=== PATIENT | male | born 1995 | race Caucasian/White ===

== ENCOUNTER 2021-09-15 21:47 | Outpatient (REF) | payer OTHER, SELFPAY ==
[2021-09-15 22:08] LABS: Basophils Absolute Auto 0.03 K/uL (0.00-0.30); Basophils Percent Auto 0.6 % (0.0-3.0); Eosinophils Absolute Auto 0.02 K/uL (0.00-0.50); Eosinophils Percent Auto 0.4 % (0.0-7.0); Hematocrit 43.2 % (37.0-53.0); Hemoglobin* 14.7 gm/dL (13.5-17.5); Immature Granulocytes Abs Auto 0.01 K/uL (0.00-0.30); Lymphocytes Absolute Auto 1.76 K/uL (0.90-2.90); Lymphocytes Percent Auto 37.9 % (20-44); Mean Corpuscular HGB Conc 34 gm/dL (32-36); Mean Corpuscular Hemoglobin 30 pg (26-34); Mean Corpuscular Volume 87 fL (80-100); Monocytes Percent Auto 13.4 % (0.0-11.0); Neutrophils Percent Auto 47.5 % (42.0-72.0); Platelet Count* 198 K/uL (140-440); Red Blood Count 4.95 m/uL (4.30-5.90); White Blood Count* 4.64 K/uL (4.50-11.00)
[2021-09-15 22:11] LABS: Slide Review Reflex No
== END 2021-09-15 21:48 | disposition home or self-care (01) ==
LOC: LAB 21:47
PROVIDERS: Visit Provider Psychiatry & Neurology Psychiatry
DX: F25.0 Schizoaffective disorder, bipolar type (principal)
CPT/HCPCS: 36415; 85025

== ENCOUNTER 2021-11-13 22:13 | Outpatient (RCR) | payer OTHER, SELFPAY ==
[2021-10-13 23:30] LABS: Basophils Absolute Auto 0.02 K/uL (0.00-0.30); Basophils Percent Auto 0.4 % (0.0-3.0); Eosinophils Absolute Auto 0.01 K/uL (0.00-0.50); Eosinophils Percent Auto 0.2 % (0.0-7.0); Hematocrit 40.8 % (37.0-53.0); Immature Granulocytes Abs Auto 0.01 K/uL (0.00-0.30); Lymphocytes Absolute Auto 1.93 K/uL (0.90-2.90); Lymphocytes Percent Auto 41.6 % (20-44); Mean Corpuscular HGB Conc 34 gm/dL (32-36); Mean Corpuscular Hemoglobin 30 pg (26-34); Mean Corpuscular Volume 87 fL (80-100); Monocytes Percent Auto 15.3 % (0.0-11.0); Neutrophils Absolute Auto 1.96 K/uL (1.7-7.0); Neutrophils Percent Auto 42.3 % (42.0-72.0); Platelet Count* 211 K/uL (140-440); RDW Coefficient of Variation % 12.1 % (11.5-15.5); Red Blood Count 4.69 m/uL (4.30-5.90); White Blood Count* 4.64 K/uL (4.50-11.00)
[2021-10-13 23:37] LABS: Slide Review Reflex No
[2021-11-13 22:56] LABS: Basophils Absolute Auto 0.02 K/uL (0.00-0.30); Basophils Percent Auto 0.2 % (0.0-3.0); Eosinophils Absolute Auto 0.01 K/uL (0.00-0.50); Eosinophils Percent Auto 0.1 % (0.0-7.0); Hematocrit 41.9 % (37.0-53.0); Hemoglobin* 14.5 gm/dL (13.5-17.5); Immature Granulocytes Abs Auto 0.01 K/uL (0.00-0.30); Lymphocytes Absolute Auto 1.68 K/uL (0.90-2.90); Mean Corpuscular HGB Conc 35 gm/dL (32-36); Mean Corpuscular Hemoglobin 30 pg (26-34); Mean Corpuscular Volume 88 fL (80-100); Monocytes Percent Auto 11.9 % (0.0-11.0); Neutrophils Absolute Auto 5.67 K/uL (1.7-7.0); Neutrophils Percent Auto 67.7 % (42.0-72.0); Platelet Count* 184 K/uL (140-440); RDW Coefficient of Variation % 11.8 % (11.5-15.5); Red Blood Count 4.77 m/uL (4.30-5.90); White Blood Count* 8.39 K/uL (4.50-11.00)
[2021-11-13 23:01] LABS: Slide Review Reflex No
[2022-04-23 21:49] LABS: Basophils Percent Auto 0.7 % (0.0-3.0); Hematocrit 39.1 % (37.0-53.0); Hemoglobin* 13.3 gm/dL (13.5-17.5); Immature Granulocytes Pct Auto 0.2 %; Lymphocytes Percent Auto 38.2 % (20-44); Mean Corpuscular HGB Conc 34 gm/dL (32-36); Mean Corpuscular Hemoglobin 31 pg (26-34); Mean Corpuscular Volume 90 fL (80-100); Monocytes Percent Auto 12.2 % (0.0-11.0); Neutrophils Percent Auto 48.7 % (42.0-72.0); Platelet Count* 202 K/uL (140-440); RDW Coefficient of Variation % 12.1 % (11.5-15.5); Red Blood Count 4.35 m/uL (4.30-5.90); White Blood Count* 4.03 K/uL (4.50-11.00)
[2022-04-23 21:57] LABS: Slide Review Reflex No
== END 2022-10-21 11:50 | disposition home or self-care (01) ==
LOC: LAB 22:13
PROVIDERS: Visit Provider Psychiatry & Neurology Psychiatry
DX: F25.0 Schizoaffective disorder, bipolar type (principal); Z79.899 Other long term (current) drug therapy
CPT/HCPCS: 36415; 85025

== ENCOUNTER 2021-12-08 21:45 | Outpatient (REF) | payer OTHER, SELFPAY ==
[2021-12-08 22:59] LABS: Basophils Absolute Auto 0.05 K/uL (0.00-0.30); Basophils Percent Auto 0.7 % (0.0-3.0); Eosinophils Absolute Auto 0.01 K/uL (0.00-0.50); Eosinophils Percent Auto 0.1 % (0.0-7.0); Hematocrit 43.7 % (37.0-53.0); Hemoglobin* 15.2 gm/dL (13.5-17.5); Immature Granulocytes Abs Auto 0.02 K/uL (0.00-0.30); Lymphocytes Absolute Auto 2.04 K/uL (0.90-2.90); Lymphocytes Percent Auto 26.9 % (20-44); Mean Corpuscular HGB Conc 35 gm/dL (32-36); Mean Corpuscular Hemoglobin 31 pg (26-34); Mean Corpuscular Volume 88 fL (80-100); Monocytes Percent Auto 13.9 % (0.0-11.0); Neutrophils Absolute Auto 4.41 K/uL (1.7-7.0); Neutrophils Percent Auto 58.1 % (42.0-72.0); Platelet Count* 211 K/uL (140-440); Red Blood Count 4.96 m/uL (4.30-5.90); White Blood Count* 7.58 K/uL (4.50-11.00)
[2021-12-08 23:00] LABS: Slide Review Reflex No
== END 2021-12-08 21:46 | disposition home or self-care (01) ==
LOC: LAB 21:45
PROVIDERS: Visit Provider Psychiatry & Neurology Psychiatry
DX: F25.0 Schizoaffective disorder, bipolar type (principal)
CPT/HCPCS: 36415; 85025

== ENCOUNTER 2022-01-04 23:12 | Outpatient (RCR) | payer OTHER, SELFPAY ==
[2022-01-05 02:37] LABS: Hematocrit 43.5 % (37.0-53.0); Hemoglobin* 14.6 gm/dL (13.5-17.5); Mean Corpuscular HGB Conc 34 gm/dL (32-36); Mean Corpuscular Hemoglobin 30 pg (26-34); Mean Corpuscular Volume 90 fL (80-100); Red Blood Count 4.84 m/uL (4.30-5.90); White Blood Count* 8.64 K/uL (4.50-11.00)
[2022-01-05 02:38] LABS: Basophils Percent Auto 0.5 % (0.0-3.0); Eosinophils Percent Auto 0.1 % (0.0-7.0); Immature Granulocytes Pct Auto 0.2 %; Lymphocytes Percent Auto 24.9 % (20-44); Monocytes Percent Auto 9.1 % (0.0-11.0); Neutrophils Percent Auto 65.2 % (42.0-72.0); Platelet Count* 208 K/uL (140-440); Slide Review Reflex No
[2022-03-26 15:48] LABS: Basophils Percent Auto 0.2 % (0.0-3.0); Hematocrit 44.2 % (37.0-53.0); Hemoglobin* 14.9 gm/dL (13.5-17.5); Immature Granulocytes Pct Auto 0.2 %; Lymphocytes Percent Auto 33.3 % (20-44); Mean Corpuscular HGB Conc 34 gm/dL (32-36); Mean Corpuscular Hemoglobin 31 pg (26-34); Mean Corpuscular Volume 91 fL (80-100); Monocytes Percent Auto 12.5 % (0.0-11.0); Neutrophils Percent Auto 53.8 % (42.0-72.0); Platelet Count* 184 K/uL (140-440); RDW Coefficient of Variation % 12.1 % (11.5-15.5); Red Blood Count 4.87 m/uL (4.30-5.90); White Blood Count* 4.09 K/uL (4.50-11.00)
[2022-03-26 15:49] LABS: Slide Review Reflex No
[2022-05-20 21:47] LABS: Basophils Absolute Auto 0.02 K/uL (0.00-0.30); Basophils Percent Auto 0.3 % (0.0-3.0); Eosinophils Absolute Auto 0.01 K/uL (0.00-0.50); Eosinophils Percent Auto 0.2 % (0.0-7.0); Hematocrit 43.1 % (37.0-53.0); Hemoglobin* 14.7 gm/dL (13.5-17.5); Immature Granulocytes Abs Auto 0.02 K/uL (0.00-0.30); Immature Granulocytes Pct Auto 0.3 %; Lymphocytes Absolute Auto 2.44 K/uL (0.90-2.90); Lymphocytes Percent Auto 37.2 % (20-44); Mean Corpuscular HGB Conc 34 gm/dL (32-36); Mean Corpuscular Hemoglobin 30 pg (26-34); Mean Corpuscular Volume 89 fL (80-100); Monocytes Percent Auto 12.5 % (0.0-11.0); Neutrophils Absolute Auto 3.25 K/uL (1.7-7.0); Neutrophils Percent Auto 49.5 % (42.0-72.0); Platelet Count* 222 K/uL (140-440); RDW Coefficient of Variation % 11.7 % (11.5-15.5); Red Blood Count 4.84 m/uL (4.30-5.90); White Blood Count* 6.56 K/uL (4.50-11.00)
[2022-05-20 21:48] LABS: Slide Review Reflex No
== END 2022-01-04 23:13 | disposition home or self-care (01) ==
LOC: LAB 23:12
PROVIDERS: Visit Provider Psychiatry & Neurology Psychiatry
DX: F25.0 Schizoaffective disorder, bipolar type (principal)
CPT/HCPCS: 36415; 85025

== ENCOUNTER 2022-02-02 21:43 | Outpatient (REF) | payer OTHER, SELFPAY ==
[2022-02-02 23:04] LABS: Basophils Absolute Auto 0.02 K/uL (0.00-0.30); Basophils Percent Auto 0.4 % (0.0-3.0); Hematocrit 41.2 % (37.0-53.0); Hemoglobin* 14.1 gm/dL (13.5-17.5); Immature Granulocytes Abs Auto 0.01 K/uL (0.00-0.30); Immature Granulocytes Pct Auto 0.2 %; Lymphocytes Absolute Auto 1.57 K/uL (0.90-2.90); Lymphocytes Percent Auto 30.3 % (20-44); Mean Corpuscular HGB Conc 34 gm/dL (32-36); Mean Corpuscular Hemoglobin 30 pg (26-34); Mean Corpuscular Volume 89 fL (80-100); Monocytes Percent Auto 14.7 % (0.0-11.0); Neutrophils Absolute Auto 2.82 K/uL (1.7-7.0); Neutrophils Percent Auto 54.4 % (42.0-72.0); Platelet Count* 219 K/uL (140-440); RDW Coefficient of Variation % 12.2 % (11.5-15.5); Red Blood Count 4.64 m/uL (4.30-5.90); White Blood Count* 5.18 K/uL (4.50-11.00)
[2022-02-02 23:07] LABS: Slide Review Reflex No
== END 2022-02-02 21:44 | disposition home or self-care (01) ==
LOC: LAB 21:43
PROVIDERS: Visit Provider Psychiatry & Neurology Psychiatry
DX: U07.1 COVID-19 (principal); J02.9 Acute pharyngitis, unspecified; E10.9 Type 1 diabetes mellitus without complications; E03.9 Hypothyroidism, unspecified
CPT/HCPCS: 36415; 85025

== ENCOUNTER 2022-03-02 21:27 | Outpatient (REF) | payer OTHER, SELFPAY ==
[2022-03-02 21:44] LABS: Basophils Absolute Auto 0.02 K/uL (0.00-0.30); Basophils Percent Auto 0.4 % (0.0-3.0); Hematocrit 38.7 % (37.0-53.0); Hemoglobin* 13.3 gm/dL (13.5-17.5); Immature Granulocytes Abs Auto 0.01 K/uL (0.00-0.30); Immature Granulocytes Pct Auto 0.2 %; Lymphocytes Absolute Auto 1.96 K/uL (0.90-2.90); Lymphocytes Percent Auto 34.4 % (20-44); Mean Corpuscular HGB Conc 34 gm/dL (32-36); Mean Corpuscular Hemoglobin 30 pg (26-34); Mean Corpuscular Volume 88 fL (80-100); Monocytes Percent Auto 12.1 % (0.0-11.0); Neutrophils Absolute Auto 3.01 K/uL (1.7-7.0); Neutrophils Percent Auto 52.9 % (42.0-72.0); Platelet Count* 207 K/uL (140-440); Red Blood Count 4.38 m/uL (4.30-5.90); White Blood Count* 5.69 K/uL (4.50-11.00)
[2022-03-02 21:45] LABS: Slide Review Reflex No
== END 2022-03-02 21:28 | disposition home or self-care (01) ==
LOC: NPINS 21:27
PROVIDERS: Visit Provider Psychiatry & Neurology Psychiatry
DX: F25.0 Schizoaffective disorder, bipolar type (principal)
CPT/HCPCS: 85025

== ENCOUNTER 2022-03-26 13:16 | Outpatient (CLI) | payer OTHER, SELFPAY | END 2022-03-26 13:17 | disposition home or self-care (01) | PROVIDERS: Visit Provider Psychiatry & Neurology Psychiatry | DX: F25.0 Schizoaffective disorder, bipolar type (principal) | CPT/HCPCS: 36415; 85025 ==

== ENCOUNTER 2022-09-25 01:42 | Outpatient (CLI) | payer OTHER, SELFPAY | END 2022-09-25 01:43 | disposition home or self-care (01) | LOC: AMB 09-28 14:48 | PROVIDERS: Visit Provider Internal Medicine | DX: T42.4X2A Poisoning by benzodiazepines, intentional self-harm, initial encounter (principal); T42.6X2A Poisoning by other antiepileptic and sedative-hypnotic drugs, intentional self-harm, initial encounter; T38.1X2A Poisoning by thyroid hormones and substitutes, intentional self-harm, initial encounter; Y92.009 Unspecified place in unspecified non-institutional (private) residence as the place of occurrence of the external cause | CPT/HCPCS: A0425; A0427 ==

== ENCOUNTER 2022-10-19 13:46 | Outpatient (CLI) | payer OTHER, SELFPAY | END 2022-10-19 13:47 | disposition home or self-care (01) | PROVIDERS: PCP Family Medicine; Visit Provider Family Medicine | DX: E10.9 Type 1 diabetes mellitus without complications (principal); E03.9 Hypothyroidism, unspecified; F25.9 Schizoaffective disorder, unspecified; T50.901A Poisoning by unspecified drugs, medicaments and biological substances, accidental (unintentional), initial encounter | CPT/HCPCS: 80048; 80164; 80165; 84443 ==

== ENCOUNTER 2022-11-04 16:55 | Outpatient (RCR) | payer OTHER, SELFPAY ==
[2022-11-04 18:15] LABS: Basophils Absolute Auto 0.02 K/uL (0.00-0.30); Basophils Percent Auto 0.3 % (0.0-3.0); Hematocrit 40.5 % (37.0-53.0); Hemoglobin* 13.7 gm/dL (13.5-17.5); Lymphocytes Absolute Auto 2.17 K/uL (0.90-2.90); Lymphocytes Percent Auto 28.8 % (20-44); Mean Corpuscular HGB Conc 34 gm/dL (32-36); Mean Corpuscular Hemoglobin 30 pg (26-34); Mean Corpuscular Volume 89 fL (80-100); Monocytes Percent Auto 12.2 % (0.0-11.0); Neutrophils Absolute Auto 4.43 K/uL (1.7-7.0); Neutrophils Percent Auto 58.7 % (42.0-72.0); Platelet Count* 188 K/uL (140-440); RDW Coefficient of Variation % 12.1 % (11.5-15.5); Red Blood Count 4.57 m/uL (4.30-5.90); White Blood Count* 7.54 K/uL (4.50-11.00)
[2022-11-04 18:40] LABS: Slide Review Reflex No
[2022-12-30 22:58] LABS: Basophils Absolute Auto 0.02 K/uL (0.00-0.30); Basophils Percent Auto 0.3 % (0.0-3.0); Eosinophils Absolute Auto 0.01 K/uL (0.00-0.50); Eosinophils Percent Auto 0.1 % (0.0-7.0); Hematocrit 40.3 % (37.0-53.0); Hemoglobin* 13.7 gm/dL (13.5-17.5); Immature Granulocytes Abs Auto 0.04 K/uL (0.00-0.30); Immature Granulocytes Pct Auto 0.5 %; Lymphocytes Percent Auto 33.3 % (20-44); Mean Corpuscular HGB Conc 34 gm/dL (32-36); Mean Corpuscular Hemoglobin 30 pg (26-34); Mean Corpuscular Volume 89 fL (80-100); Monocytes Percent Auto 12.1 % (0.0-11.0); Neutrophils Absolute Auto 4.02 K/uL (1.7-7.0); Neutrophils Percent Auto 53.7 % (42.0-72.0); Platelet Count* 242 K/uL (140-440); RDW Coefficient of Variation % 12.3 % (11.5-15.5); Red Blood Count 4.54 m/uL (4.30-5.90)
[2022-12-30 23:02] LABS: Slide Review Reflex No
[2023-02-24 22:12] LABS: Basophils Absolute Auto 0.04 K/uL (0.00-0.30); Basophils Percent Auto 0.6 % (0.0-3.0); Eosinophils Absolute Auto 0.01 K/uL (0.00-0.50); Eosinophils Percent Auto 0.2 % (0.0-7.0); Hemoglobin* 14.4 gm/dL (13.5-17.5); Immature Granulocytes Abs Auto 0.08 K/uL (0.00-0.30); Immature Granulocytes Pct Auto 1.2 %; Lymphocytes Percent Auto 33.5 % (20-44); Mean Corpuscular HGB Conc 34 gm/dL (32-36); Mean Corpuscular Hemoglobin 30 pg (26-34); Mean Corpuscular Volume 89 fL (80-100); Neutrophils Absolute Auto 3.18 K/uL (1.7-7.0); Neutrophils Percent Auto 48.5 % (42.0-72.0); Platelet Count* 293 K/uL (140-440); RDW Coefficient of Variation % 12.3 % (11.5-15.5); Red Blood Count 4.81 m/uL (4.30-5.90); White Blood Count* 6.56 K/uL (4.50-11.00)
[2023-02-24 22:14] LABS: Slide Review Reflex No
[2023-03-31 21:38] LABS: Basophils Absolute Auto 0.02 K/uL (0.00-0.30); Basophils Percent Auto 0.2 % (0.0-3.0); Hematocrit 41.1 % (37.0-53.0); Hemoglobin* 13.6 gm/dL (13.5-17.5); Immature Granulocytes Abs Auto 0.08 K/uL (0.00-0.30); Immature Granulocytes Pct Auto 0.8 %; Lymphocytes Absolute Auto 2.49 K/uL (0.90-2.90); Lymphocytes Percent Auto 25.6 % (20-44); Mean Corpuscular HGB Conc 33 gm/dL (32-36); Mean Corpuscular Hemoglobin 29 pg (26-34); Mean Corpuscular Volume 89 fL (80-100); Monocytes Percent Auto 14.4 % (0.0-11.0); Neutrophils Absolute Auto 5.75 K/uL (1.7-7.0); Platelet Count* 297 K/uL (140-440); RDW Coefficient of Variation % 12.8 % (11.5-15.5); Red Blood Count 4.63 m/uL (4.30-5.90); White Blood Count* 9.74 K/uL (4.50-11.00)
[2023-03-31 21:47] LABS: Slide Review Reflex No
[2023-04-20 21:40] LABS: Basophils Absolute Auto 0.02 K/uL (0.00-0.30); Basophils Percent Auto 0.4 % (0.0-3.0); Hematocrit 40.2 % (37.0-53.0); Hemoglobin* 13.4 gm/dL (13.5-17.5); Immature Granulocytes Abs Auto 0.01 K/uL (0.00-0.30); Immature Granulocytes Pct Auto 0.2 %; Lymphocytes Absolute Auto 1.46 K/uL (0.90-2.90); Mean Corpuscular HGB Conc 33 gm/dL (32-36); Mean Corpuscular Hemoglobin 30 pg (26-34); Mean Corpuscular Volume 89 fL (80-100); Monocytes Percent Auto 15.7 % (0.0-11.0); Neutrophils Absolute Auto 2.48 K/uL (1.7-7.0); Neutrophils Percent Auto 52.7 % (42.0-72.0); Platelet Count* 198 K/uL (140-440); RDW Coefficient of Variation % 13.4 % (11.5-15.5); Red Blood Count 4.54 m/uL (4.30-5.90); White Blood Count* 4.71 K/uL (4.50-11.00)
[2023-04-20 21:43] LABS: Slide Review Reflex No
== END 2023-10-25 08:57 | disposition home or self-care (01) ==
LOC: NPINS 16:55
PROVIDERS: PCP Family Medicine; Visit Provider Psychiatry & Neurology Psychiatry
DX: F25.8 Other schizoaffective disorders (principal); Z79.899 Other long term (current) drug therapy
CPT/HCPCS: 36415; 85025

== ENCOUNTER 2022-12-02 21:46 | Outpatient (REF) | payer OTHER, MEDICARE, SELFPAY ==
[2022-12-02 22:34] LABS: Basophils Absolute Auto 0.03 K/uL (0.00-0.30); Basophils Percent Auto 0.5 % (0.0-3.0); Hemoglobin* 14.9 gm/dL (13.5-17.5); Immature Granulocytes Abs Auto 0.01 K/uL (0.00-0.30); Immature Granulocytes Pct Auto 0.2 %; Lymphocytes Percent Auto 32.9 % (20-44); Mean Corpuscular HGB Conc 34 gm/dL (32-36); Mean Corpuscular Hemoglobin 30 pg (26-34); Mean Corpuscular Volume 90 fL (80-100); Monocytes Percent Auto 15.3 % (0.0-11.0); Neutrophils Absolute Auto 2.95 K/uL (1.7-7.0); Neutrophils Percent Auto 51.1 % (42.0-72.0); Platelet Count* 191 K/uL (140-440); RDW Coefficient of Variation % 12.1 % (11.5-15.5); Red Blood Count 4.91 m/uL (4.30-5.90); White Blood Count* 5.77 K/uL (4.50-11.00)
[2022-12-02 22:39] LABS: Slide Review Reflex No
== END 2022-12-02 21:47 | disposition home or self-care (01) ==
LOC: NPINS 21:46
PROVIDERS: PCP Family Medicine; Visit Provider Psychiatry & Neurology Psychiatry
DX: E03.9 Hypothyroidism, unspecified (principal); E10.9 Type 1 diabetes mellitus without complications; F25.9 Schizoaffective disorder, unspecified
CPT/HCPCS: 85025

== ENCOUNTER 2023-01-27 22:06 | Outpatient (REF) | payer OTHER, MEDICARE, SELFPAY ==
[2023-01-27 23:48] LABS: Basophils Absolute Auto 0.02 K/uL (0.00-0.30); Basophils Percent Auto 0.2 % (0.0-3.0); Hematocrit 41.2 % (37.0-53.0); Hemoglobin* 13.9 gm/dL (13.5-17.5); Immature Granulocytes Abs Auto 0.05 K/uL (0.00-0.30); Immature Granulocytes Pct Auto 0.6 %; Lymphocytes Percent Auto 23.4 % (20-44); Mean Corpuscular HGB Conc 34 gm/dL (32-36); Mean Corpuscular Hemoglobin 30 pg (26-34); Mean Corpuscular Volume 90 fL (80-100); Monocytes Percent Auto 12.4 % (0.0-11.0); Neutrophils Absolute Auto 5.14 K/uL (1.7-7.0); Neutrophils Percent Auto 63.4 % (42.0-72.0); Platelet Count* 214 K/uL (140-440); RDW Coefficient of Variation % 12.8 % (11.5-15.5); Red Blood Count 4.59 m/uL (4.30-5.90); White Blood Count* 8.12 K/uL (4.50-11.00)
[2023-01-27 23:52] LABS: Slide Review Reflex No
== END 2023-01-27 22:07 | disposition home or self-care (01) ==
LOC: NPINS 22:06
PROVIDERS: PCP Family Medicine; Visit Provider Psychiatry & Neurology Psychiatry
DX: Z13.0 Encounter for screening for diseases of the blood and blood-forming organs and certain disorders involving the immune mechanism (principal)
CPT/HCPCS: 85025

== ENCOUNTER 2023-08-16 21:57 | Outpatient (RCR) | payer MEDICARE, OTHER, SELFPAY ==
[2022-06-18 21:37] LABS: Basophils Absolute Auto 0.03 K/uL (0.00-0.30); Basophils Percent Auto 0.5 % (0.0-3.0); Hematocrit 42.9 % (37.0-53.0); Hemoglobin* 14.8 gm/dL (13.5-17.5); Immature Granulocytes Abs Auto 0.01 K/uL (0.00-0.30); Immature Granulocytes Pct Auto 0.2 %; Lymphocytes Percent Auto 29.5 % (20-44); Mean Corpuscular HGB Conc 35 gm/dL (32-36); Mean Corpuscular Hemoglobin 31 pg (26-34); Mean Corpuscular Volume 89 fL (80-100); Monocytes Percent Auto 15.7 % (0.0-11.0); Neutrophils Absolute Auto 3.49 K/uL (1.7-7.0); Neutrophils Percent Auto 54.1 % (42.0-72.0); Platelet Count* 201 K/uL (140-440); RDW Coefficient of Variation % 11.9 % (11.5-15.5); Red Blood Count 4.85 m/uL (4.30-5.90); White Blood Count* 6.44 K/uL (4.50-11.00)
[2022-06-18 22:03] LABS: Slide Review Reflex No
[2022-07-16 21:14] LABS: Basophils Absolute Auto 0.03 K/uL (0.00-0.30); Basophils Percent Auto 0.5 % (0.0-3.0); Hematocrit 40.2 % (37.0-53.0); Hemoglobin* 13.9 gm/dL (13.5-17.5); Immature Granulocytes Abs Auto 0.02 K/uL (0.00-0.30); Immature Granulocytes Pct Auto 0.3 %; Lymphocytes Absolute Auto 2.04 K/uL (0.90-2.90); Lymphocytes Percent Auto 31.4 % (20-44); Mean Corpuscular HGB Conc 35 gm/dL (32-36); Mean Corpuscular Hemoglobin 30 pg (26-34); Mean Corpuscular Volume 88 fL (80-100); Monocytes Percent Auto 13.2 % (0.0-11.0); Neutrophils Absolute Auto 3.55 K/uL (1.7-7.0); Neutrophils Percent Auto 54.6 % (42.0-72.0); Platelet Count* 224 K/uL (140-440); RDW Coefficient of Variation % 12.1 % (11.5-15.5); Red Blood Count 4.59 m/uL (4.30-5.90)
[2022-07-16 21:27] LABS: Slide Review Reflex No
[2022-08-12 22:10] LABS: Basophils Absolute Auto 0.03 K/uL (0.00-0.30); Basophils Percent Auto 0.3 % (0.0-3.0); Eosinophils Absolute Auto 0.01 K/uL (0.00-0.50); Eosinophils Percent Auto 0.1 % (0.0-7.0); Hematocrit 40.1 % (37.0-53.0); Hemoglobin* 13.8 gm/dL (13.5-17.5); Immature Granulocytes Abs Auto 0.03 K/uL (0.00-0.30); Immature Granulocytes Pct Auto 0.3 %; Lymphocytes Percent Auto 16.1 % (20-44); Mean Corpuscular HGB Conc 34 gm/dL (32-36); Mean Corpuscular Hemoglobin 30 pg (26-34); Mean Corpuscular Volume 88 fL (80-100); Monocytes Percent Auto 13.9 % (0.0-11.0); Neutrophils Absolute Auto 7.51 K/uL (1.7-7.0); Neutrophils Percent Auto 69.3 % (42.0-72.0); Platelet Count* 208 K/uL (140-440); RDW Coefficient of Variation % 12.3 % (11.5-15.5); Red Blood Count 4.58 m/uL (4.30-5.90); White Blood Count* 10.84 K/uL (4.50-11.00)
[2022-08-12 22:13] LABS: Slide Review Reflex No
[2022-09-09 22:29] LABS: Basophils Absolute Auto 0.03 K/uL (0.00-0.30); Basophils Percent Auto 0.4 % (0.0-3.0); Eosinophils Absolute Auto 0.01 K/uL (0.00-0.50); Eosinophils Percent Auto 0.1 % (0.0-7.0); Hematocrit 41.5 % (37.0-53.0); Immature Granulocytes Abs Auto 0.05 K/uL (0.00-0.30); Immature Granulocytes Pct Auto 0.6 %; Lymphocytes Absolute Auto 1.92 K/uL (0.90-2.90); Lymphocytes Percent Auto 22.9 % (20-44); Mean Corpuscular HGB Conc 34 gm/dL (32-36); Mean Corpuscular Hemoglobin 30 pg (26-34); Mean Corpuscular Volume 89 fL (80-100); Monocytes Percent Auto 12.2 % (0.0-11.0); Neutrophils Absolute Auto 5.34 K/uL (1.7-7.0); Neutrophils Percent Auto 63.8 % (42.0-72.0); Platelet Count* 210 K/uL (140-440); RDW Coefficient of Variation % 12.4 % (11.5-15.5); Red Blood Count 4.65 m/uL (4.30-5.90); White Blood Count* 8.37 K/uL (4.50-11.00)
[2022-09-09 22:36] LABS: Slide Review Reflex No
[2022-10-07 21:50] LABS: Basophils Absolute Auto 0.03 K/uL (0.00-0.30); Basophils Percent Auto 0.4 % (0.0-3.0); Eosinophils Absolute Auto 0.02 K/uL (0.00-0.50); Eosinophils Percent Auto 0.3 % (0.0-7.0); Hematocrit 39.1 % (37.0-53.0); Hemoglobin* 13.3 gm/dL (13.5-17.5); Immature Granulocytes Abs Auto 0.01 K/uL (0.00-0.30); Immature Granulocytes Pct Auto 0.1 %; Lymphocytes Absolute Auto 1.68 K/uL (0.90-2.90); Lymphocytes Percent Auto 23.2 % (20-44); Mean Corpuscular HGB Conc 34 gm/dL (32-36); Mean Corpuscular Hemoglobin 31 pg (26-34); Mean Corpuscular Volume 90 fL (80-100); Monocytes Percent Auto 12.3 % (0.0-11.0); Neutrophils Absolute Auto 4.62 K/uL (1.7-7.0); Neutrophils Percent Auto 63.7 % (42.0-72.0); Platelet Count* 208 K/uL (140-440); RDW Coefficient of Variation % 12.4 % (11.5-15.5); Red Blood Count 4.36 m/uL (4.30-5.90); White Blood Count* 7.25 K/uL (4.50-11.00)
[2022-10-07 21:54] LABS: Slide Review Reflex No
[2023-05-18 21:48] LABS: Basophils Absolute Auto 0.02 K/uL (0.00-0.30); Basophils Percent Auto 0.3 % (0.0-3.0); Eosinophils Absolute Auto 0.01 K/uL (0.00-0.50); Eosinophils Percent Auto 0.1 % (0.0-7.0); Hematocrit 42.2 % (37.0-53.0); Hemoglobin* 14.3 gm/dL (13.5-17.5); Immature Granulocytes Abs Auto 0.01 K/uL (0.00-0.30); Immature Granulocytes Pct Auto 0.1 %; Lymphocytes Absolute Auto 2.13 K/uL (0.90-2.90); Lymphocytes Percent Auto 27.9 % (20-44); Mean Corpuscular HGB Conc 34 gm/dL (32-36); Mean Corpuscular Hemoglobin 30 pg (26-34); Mean Corpuscular Volume 89 fL (80-100); Neutrophils Absolute Auto 4.55 K/uL (1.7-7.0); Neutrophils Percent Auto 59.6 % (42.0-72.0); Platelet Count* 230 K/uL (140-440); RDW Coefficient of Variation % 13.2 % (11.5-15.5); Red Blood Count 4.76 m/uL (4.30-5.90); White Blood Count* 7.64 K/uL (4.50-11.00)
[2023-05-18 21:50] LABS: Slide Review Reflex No
[2023-06-21 22:23] LABS: Basophils Percent Auto 0.5 % (0.0-3.0); Hematocrit 42.9 % (37.0-53.0); Hemoglobin* 14.7 gm/dL (13.5-17.5); Immature Granulocytes Pct Auto 0.3 %; Lymphocytes Percent Auto 43.5 % (20-44); Mean Corpuscular HGB Conc 34 gm/dL (32-36); Mean Corpuscular Hemoglobin 30 pg (26-34); Mean Corpuscular Volume 88 fL (80-100); Monocytes Percent Auto 14.2 % (0.0-11.0); Neutrophils Percent Auto 41.5 % (42.0-72.0); Platelet Count* 203 K/uL (140-440); RDW Coefficient of Variation % 12.2 % (11.5-15.5); Red Blood Count 4.89 m/uL (4.30-5.90); White Blood Count* 3.93 K/uL (4.50-11.00)
[2023-06-21 22:25] LABS: Slide Review Reflex No
[2023-07-19 22:17] LABS: Basophils Absolute Auto 0.02 K/uL (0.00-0.30); Basophils Percent Auto 0.3 % (0.0-3.0); Hematocrit 42.3 % (37.0-53.0); Hemoglobin* 14.5 gm/dL (13.5-17.5); Immature Granulocytes Abs Auto 0.01 K/uL (0.00-0.30); Immature Granulocytes Pct Auto 0.2 %; Lymphocytes Absolute Auto 1.54 K/uL (0.90-2.90); Mean Corpuscular HGB Conc 34 gm/dL (32-36); Mean Corpuscular Hemoglobin 30 pg (26-34); Mean Corpuscular Volume 87 fL (80-100); Monocytes Percent Auto 7.5 % (0.0-11.0); Neutrophils Absolute Auto 4.36 K/uL (1.7-7.0); Platelet Count* 220 K/uL (140-440); RDW Coefficient of Variation % 11.9 % (11.5-15.5); Red Blood Count 4.84 m/uL (4.30-5.90); White Blood Count* 6.41 K/uL (4.50-11.00)
[2023-07-19 22:35] LABS: Slide Review Reflex No
[2023-08-16 22:51] LABS: Basophils Absolute Auto 0.05 K/uL (0.00-0.30); Basophils Percent Auto 0.8 % (0.0-3.0); Eosinophils Absolute Auto 0.01 K/uL (0.00-0.50); Eosinophils Percent Auto 0.2 % (0.0-7.0); Hematocrit 39.5 % (37.0-53.0); Hemoglobin* 13.7 gm/dL (13.5-17.5); Immature Granulocytes Abs Auto 0.05 K/uL (0.00-0.30); Immature Granulocytes Pct Auto 0.8 %; Lymphocytes Absolute Auto 2.04 K/uL (0.90-2.90); Lymphocytes Percent Auto 31.5 % (20-44); Mean Corpuscular HGB Conc 35 gm/dL (32-36); Mean Corpuscular Hemoglobin 30 pg (26-34); Mean Corpuscular Volume 87 fL (80-100); Monocytes Percent Auto 11.1 % (0.0-11.0); Neutrophils Percent Auto 55.6 % (42.0-72.0); Platelet Count* 208 K/uL (140-440); RDW Coefficient of Variation % 12.3 % (11.5-15.5); Red Blood Count 4.53 m/uL (4.30-5.90); White Blood Count* 6.47 K/uL (4.50-11.00)
[2023-08-16 22:52] LABS: Slide Review Reflex No
[2023-09-06 22:05] LABS: Basophils Absolute Auto 0.01 K/uL (0.00-0.30); Basophils Percent Auto 0.1 % (0.0-3.0); Hemoglobin* 13.4 gm/dL (13.5-17.5); Immature Granulocytes Abs Auto 0.02 K/uL (0.00-0.30); Immature Granulocytes Pct Auto 0.3 %; Lymphocytes Percent Auto 15.3 % (20-44); Mean Corpuscular HGB Conc 34 gm/dL (32-36); Mean Corpuscular Hemoglobin 30 pg (26-34); Mean Corpuscular Volume 87 fL (80-100); Monocytes Percent Auto 16.4 % (0.0-11.0); Neutrophils Absolute Auto 4.81 K/uL (1.7-7.0); Neutrophils Percent Auto 67.9 % (42.0-72.0); Platelet Count* 205 K/uL (140-440); RDW Coefficient of Variation % 12.1 % (11.5-15.5); Red Blood Count 4.47 m/uL (4.30-5.90); White Blood Count* 7.08 K/uL (4.50-11.00)
[2023-09-06 23:07] LABS: Slide Review Reflex No
[2023-10-12 21:44] LABS: Basophils Absolute Auto 0.03 K/uL (0.00-0.30); Basophils Percent Auto 0.5 % (0.0-3.0); Eosinophils Absolute Auto 0.01 K/uL (0.00-0.50); Eosinophils Percent Auto 0.2 % (0.0-7.0); Hematocrit 37.1 % (37.0-53.0); Hemoglobin* 12.6 gm/dL (13.5-17.5); Immature Granulocytes Abs Auto 0.05 K/uL (0.00-0.30); Immature Granulocytes Pct Auto 0.8 %; Lymphocytes Absolute Auto 2.11 K/uL (0.90-2.90); Lymphocytes Percent Auto 32.6 % (20-44); Mean Corpuscular HGB Conc 34 gm/dL (32-36); Mean Corpuscular Hemoglobin 30 pg (26-34); Mean Corpuscular Volume 88 fL (80-100); Monocytes Percent Auto 13.1 % (0.0-11.0); Neutrophils Absolute Auto 3.43 K/uL (1.7-7.0); Neutrophils Percent Auto 52.8 % (42.0-72.0); Platelet Count* 358 K/uL (140-440); RDW Coefficient of Variation % 11.8 % (11.5-15.5); Red Blood Count 4.23 m/uL (4.30-5.90); White Blood Count* 6.48 K/uL (4.50-11.00)
[2023-10-12 21:45] LABS: Slide Review Reflex No
== END 2024-07-22 10:55 | disposition home or self-care (01) ==
LOC: LAB 21:57
PROVIDERS: Visit Provider Psychiatry & Neurology Psychiatry
DX: F25.0 Schizoaffective disorder, bipolar type (principal); Z79.899 Other long term (current) drug therapy; Z51.81 Encounter for therapeutic drug level monitoring
CPT/HCPCS: 36415; 85025

== ENCOUNTER 2024-01-02 22:05 | Outpatient (RCR) | payer OTHER, SELFPAY ==
[2023-11-07 23:13] LABS: Basophils Absolute Auto 0.02 K/uL (0.00-0.30); Basophils Percent Auto 0.2 % (0.0-3.0); Hematocrit 39.8 % (37.0-53.0); Hemoglobin* 13.2 gm/dL (13.5-17.5); Immature Granulocytes Abs Auto 0.07 K/uL (0.00-0.30); Immature Granulocytes Pct Auto 0.8 %; Lymphocytes Percent Auto 19.8 % (20-44); Mean Corpuscular HGB Conc 33 gm/dL (32-36); Mean Corpuscular Hemoglobin 29 pg (26-34); Mean Corpuscular Volume 88 fL (80-100); Monocytes Percent Auto 12.6 % (0.0-11.0); Neutrophils Absolute Auto 5.48 K/uL (1.7-7.0); Neutrophils Percent Auto 66.6 % (42.0-72.0); Platelet Count* 267 K/uL (140-440); RDW Coefficient of Variation % 12.5 % (11.5-15.5); Red Blood Count 4.54 m/uL (4.30-5.90); White Blood Count* 8.24 K/uL (4.50-11.00)
[2023-11-07 23:19] LABS: Slide Review Reflex No
[2023-12-06 20:39] LABS: Basophils Absolute Auto 0.03 K/uL (0.00-0.30); Basophils Percent Auto 0.3 % (0.0-3.0); Hematocrit 39.6 % (37.0-53.0); Hemoglobin* 13.1 gm/dL (13.5-17.5); Immature Granulocytes Abs Auto 0.03 K/uL (0.00-0.30); Immature Granulocytes Pct Auto 0.3 %; Lymphocytes Percent Auto 18.8 % (20-44); Mean Corpuscular HGB Conc 33 gm/dL (32-36); Mean Corpuscular Hemoglobin 28 pg (26-34); Mean Corpuscular Volume 86 fL (80-100); Monocytes Percent Auto 18.2 % (0.0-11.0); Neutrophils Absolute Auto 6.53 K/uL (1.7-7.0); Neutrophils Percent Auto 62.4 % (42.0-72.0); Platelet Count* 328 K/uL (140-440); RDW Coefficient of Variation % 12.7 % (11.5-15.5); Red Blood Count 4.63 m/uL (4.30-5.90); White Blood Count* 10.45 K/uL (4.50-11.00)
[2023-12-06 20:42] LABS: Slide Review Reflex No
[2024-01-02 22:49] LABS: Basophils Absolute Auto 0.03 K/uL (0.00-0.30); Basophils Percent Auto 0.3 % (0.0-3.0); Eosinophils Absolute Auto 0.01 K/uL (0.00-0.50); Eosinophils Percent Auto 0.1 % (0.0-7.0); Hematocrit 38.1 % (37.0-53.0); Hemoglobin* 12.7 gm/dL (13.5-17.5); Immature Granulocytes Abs Auto 0.09 K/uL (0.00-0.30); Immature Granulocytes Pct Auto 0.8 %; Lymphocytes Percent Auto 10.5 % (20-44); Mean Corpuscular HGB Conc 33 gm/dL (32-36); Mean Corpuscular Hemoglobin 28 pg (26-34); Mean Corpuscular Volume 84 fL (80-100); Monocytes Percent Auto 16.6 % (0.0-11.0); Neutrophils Absolute Auto 7.67 K/uL (1.7-7.0); Neutrophils Percent Auto 71.7 % (42.0-72.0); Platelet Count* 328 K/uL (140-440); RDW Coefficient of Variation % 13.3 % (11.5-15.5); Red Blood Count 4.56 m/uL (4.30-5.90)
[2024-01-02 23:27] LABS: Slide Review Reflex No
[2024-02-01 21:48] LABS: Basophils Absolute Auto 0.06 K/uL (0.00-0.30); Basophils Percent Auto 0.9 % (0.0-3.0); Eosinophils Absolute Auto 0.01 K/uL (0.00-0.50); Eosinophils Percent Auto 0.1 % (0.0-7.0); Hematocrit 40.4 % (37.0-53.0); Hemoglobin* 13.2 gm/dL (13.5-17.5); Immature Granulocytes Abs Auto 0.01 K/uL (0.00-0.30); Immature Granulocytes Pct Auto 0.1 %; Lymphocytes Absolute Auto 1.37 K/uL (0.90-2.90); Lymphocytes Percent Auto 20.3 % (20-44); Mean Corpuscular HGB Conc 33 gm/dL (32-36); Mean Corpuscular Hemoglobin 28 pg (26-34); Mean Corpuscular Volume 85 fL (80-100); Monocytes Percent Auto 12.6 % (0.0-11.0); Neutrophils Absolute Auto 4.44 K/uL (1.7-7.0); Platelet Count* 210 K/uL (140-440); RDW Coefficient of Variation % 14.2 % (11.5-15.5); Red Blood Count 4.73 m/uL (4.30-5.90); White Blood Count* 6.74 K/uL (4.50-11.00)
[2024-02-01 21:56] LABS: Slide Review Reflex No
== END 2024-07-22 10:55 | disposition home or self-care (01) ==
LOC: LAB 22:05
PROVIDERS: Visit Provider Psychiatry & Neurology Psychiatry
DX: Z51.81 Encounter for therapeutic drug level monitoring (principal)
CPT/HCPCS: 36415; 85025

== ENCOUNTER 2024-02-27 19:35 | Outpatient (REF) | payer OTHER, SELFPAY ==
[2024-02-27 19:52] LABS: Basophils Absolute Auto 0.03 K/uL (0.00-0.30); Basophils Percent Auto 0.5 % (0.0-3.0); Eosinophils Absolute Auto 0.02 K/uL (0.00-0.50); Eosinophils Percent Auto 0.3 % (0.0-7.0); Hematocrit 43.5 % (37.0-53.0); Hemoglobin* 14.5 gm/dL (13.5-17.5); Immature Granulocytes Abs Auto 0.03 K/uL (0.00-0.30); Immature Granulocytes Pct Auto 0.5 %; Lymphocytes Absolute Auto 2.53 K/uL (0.90-2.90); Lymphocytes Percent Auto 38.9 % (20-44); Mean Corpuscular HGB Conc 33 gm/dL (32-36); Mean Corpuscular Hemoglobin 28 pg (26-34); Mean Corpuscular Volume 85 fL (80-100); Monocytes Percent Auto 13.2 % (0.0-11.0); Neutrophils Absolute Auto 3.04 K/uL (1.7-7.0); Neutrophils Percent Auto 46.6 % (42.0-72.0); Platelet Count* 240 K/uL (140-440); RDW Coefficient of Variation % 14.2 % (11.5-15.5); White Blood Count* 6.51 K/uL (4.50-11.00)
[2024-02-27 19:56] LABS: Slide Review Reflex No
== END 2024-02-27 19:36 | disposition home or self-care (01) ==
LOC: NPINS 19:35
PROVIDERS: Visit Provider Psychiatry & Neurology Psychiatry
DX: Z51.81 Encounter for therapeutic drug level monitoring (principal)
CPT/HCPCS: 85025

== ENCOUNTER 2024-03-28 12:21 | Outpatient (CLI) | payer OTHER, SELFPAY ==
[2024-03-28 21:40] LABS: Basophils Absolute Auto 0.03 K/uL (0.00-0.30); Basophils Percent Auto 0.5 % (0.0-3.0); Eosinophils Absolute Auto 0.02 K/uL (0.00-0.50); Eosinophils Percent Auto 0.3 % (0.0-7.0); Hematocrit 41.8 % (37.0-53.0); Hemoglobin* 14.1 gm/dL (13.5-17.5); Immature Granulocytes Abs Auto 0.01 K/uL (0.00-0.30); Immature Granulocytes Pct Auto 0.2 %; Lymphocytes Absolute Auto 2.01 K/uL (0.90-2.90); Lymphocytes Percent Auto 34.7 % (20-44); Mean Corpuscular HGB Conc 34 gm/dL (32-36); Mean Corpuscular Hemoglobin 29 pg (26-34); Mean Corpuscular Volume 87 fL (80-100); Neutrophils Absolute Auto 2.86 K/uL (1.7-7.0); Neutrophils Percent Auto 49.3 % (42.0-72.0); Platelet Count* 211 K/uL (140-440); RDW Coefficient of Variation % 13.6 % (11.5-15.5); Red Blood Count 4.82 m/uL (4.30-5.90)
[2024-03-28 21:45] LABS: Slide Review Reflex No
== END 2024-03-28 12:22 | disposition home or self-care (01) ==
LOC: NPINS 12:23
PROVIDERS: Visit Provider Psychiatry & Neurology Psychiatry
DX: Z51.81 Encounter for therapeutic drug level monitoring (principal)
CPT/HCPCS: 85025

== ENCOUNTER 2024-04-23 13:04 | Outpatient (CLI) | payer OTHER, SELFPAY ==
[2024-04-23 23:12] LABS: Basophils Absolute Auto 0.03 K/uL (0.00-0.30); Basophils Percent Auto 0.6 % (0.0-3.0); Eosinophils Absolute Auto 0.01 K/uL (0.00-0.50); Eosinophils Percent Auto 0.2 % (0.0-7.0); Hematocrit 42.1 % (37.0-53.0); Hemoglobin* 14.3 gm/dL (13.5-17.5); Immature Granulocytes Abs Auto 0.04 K/uL (0.00-0.30); Immature Granulocytes Pct Auto 0.7 %; Lymphocytes Absolute Auto 1.99 K/uL (0.90-2.90); Lymphocytes Percent Auto 37.1 % (20-44); Mean Corpuscular HGB Conc 34 gm/dL (32-36); Mean Corpuscular Hemoglobin 29 pg (26-34); Mean Corpuscular Volume 87 fL (80-100); Neutrophils Absolute Auto 2.55 K/uL (1.7-7.0); Neutrophils Percent Auto 47.4 % (42.0-72.0); Platelet Count* 275 K/uL (140-440); RDW Coefficient of Variation % 12.8 % (11.5-15.5); Red Blood Count 4.86 m/uL (4.30-5.90); White Blood Count* 5.37 K/uL (4.50-11.00)
[2024-04-23 23:29] LABS: Slide Review Reflex No
== END 2024-04-23 13:05 | disposition home or self-care (01) ==
LOC: NPINS 13:04
PROVIDERS: Visit Provider Psychiatry & Neurology Psychiatry
DX: Z51.81 Encounter for therapeutic drug level monitoring (principal)
CPT/HCPCS: 85025

== ENCOUNTER 2024-05-22 14:42 | Outpatient (CLI) | payer OTHER, SELFPAY ==
[2024-05-22 23:15] LABS: Basophils Absolute Auto 0.04 K/uL (0.00-0.30); Basophils Percent Auto 0.7 % (0.0-3.0); Hematocrit 42.5 % (37.0-53.0); Hemoglobin* 14.5 gm/dL (13.5-17.5); Immature Granulocytes Abs Auto 0.01 K/uL (0.00-0.30); Immature Granulocytes Pct Auto 0.2 %; Lymphocytes Absolute Auto 2.54 K/uL (0.90-2.90); Lymphocytes Percent Auto 41.6 % (20-44); Mean Corpuscular HGB Conc 34 gm/dL (32-36); Mean Corpuscular Hemoglobin 30 pg (26-34); Mean Corpuscular Volume 87 fL (80-100); Monocytes Percent Auto 14.6 % (0.0-11.0); Neutrophils Absolute Auto 2.63 K/uL (1.7-7.0); Neutrophils Percent Auto 42.9 % (42.0-72.0); Platelet Count* 285 K/uL (140-440); RDW Coefficient of Variation % 12.1 % (11.5-15.5); Red Blood Count 4.86 m/uL (4.30-5.90); White Blood Count* 6.11 K/uL (4.50-11.00)
[2024-05-22 23:33] LABS: Slide Review Reflex No
== END 2024-05-22 14:43 | disposition home or self-care (01) ==
LOC: NPINS 14:43
PROVIDERS: Visit Provider Psychiatry & Neurology Psychiatry
DX: Z51.81 Encounter for therapeutic drug level monitoring (principal)
CPT/HCPCS: 85025

== ENCOUNTER 2024-06-18 14:56 | Outpatient (CLI) | payer SELFPAY ==
[2024-06-18 22:03] LABS: Basophils Absolute Auto 0.02 K/uL (0.00-0.30); Basophils Percent Auto 0.4 % (0.0-3.0); Hematocrit 42.1 % (37.0-53.0); Hemoglobin* 14.4 gm/dL (13.5-17.5); Immature Granulocytes Abs Auto 0.02 K/uL (0.00-0.30); Immature Granulocytes Pct Auto 0.4 %; Lymphocytes Absolute Auto 2.05 K/uL (0.90-2.90); Lymphocytes Percent Auto 38.8 % (20-44); Mean Corpuscular HGB Conc 34 gm/dL (32-36); Mean Corpuscular Hemoglobin 30 pg (26-34); Mean Corpuscular Volume 88 fL (80-100); Monocytes Percent Auto 16.1 % (0.0-11.0); Neutrophils Absolute Auto 2.34 K/uL (1.7-7.0); Neutrophils Percent Auto 44.3 % (42.0-72.0); Platelet Count* 267 K/uL (140-440); Red Blood Count 4.78 m/uL (4.30-5.90); White Blood Count* 5.28 K/uL (4.50-11.00)
[2024-06-18 22:04] LABS: Slide Review Reflex No
== END 2024-06-18 14:57 | disposition home or self-care (01) ==
PROVIDERS: Referring Provider Psychiatry & Neurology Psychiatry; Visit Provider Psychiatry & Neurology Psychiatry
DX: Z51.81 Encounter for therapeutic drug level monitoring (principal)
CPT/HCPCS: 85025

== ENCOUNTER 2024-07-17 13:48 | Outpatient (CLI) | payer OTHER, SELFPAY ==
[2024-07-17 21:42] LABS: Basophils Absolute Auto 0.04 K/uL (0.00-0.30); Basophils Percent Auto 0.8 % (0.0-3.0); Hemoglobin* 14.6 gm/dL (13.5-17.5); Immature Granulocytes Abs Auto 0.01 K/uL (0.00-0.30); Immature Granulocytes Pct Auto 0.2 %; Lymphocytes Absolute Auto 1.99 K/uL (0.90-2.90); Lymphocytes Percent Auto 39.8 % (20-44); Mean Corpuscular HGB Conc 34 gm/dL (32-36); Mean Corpuscular Hemoglobin 30 pg (26-34); Mean Corpuscular Volume 87 fL (80-100); Monocytes Percent Auto 12.6 % (0.0-11.0); Neutrophils Absolute Auto 2.33 K/uL (1.7-7.0); Neutrophils Percent Auto 46.6 % (42.0-72.0); Platelet Count* 254 K/uL (140-440); RDW Coefficient of Variation % 11.6 % (11.5-15.5); Red Blood Count 4.94 m/uL (4.30-5.90)
[2024-07-17 21:44] LABS: Slide Review Reflex No
== END 2024-07-17 13:49 | disposition home or self-care (01) ==
LOC: NPINS 13:49
PROVIDERS: Visit Provider Psychiatry & Neurology Psychiatry
DX: Z51.81 Encounter for therapeutic drug level monitoring (principal); F25.0 Schizoaffective disorder, bipolar type; Z79.899 Other long term (current) drug therapy
CPT/HCPCS: 85025

== ENCOUNTER 2024-08-14 14:54 | Outpatient (CLI) | payer OTHER, SELFPAY ==
[2024-08-14 21:53] LABS: Basophils Absolute Auto 0.02 K/uL (0.00-0.30); Basophils Percent Auto 0.4 % (0.0-3.0); Hematocrit 41.8 % (37.0-53.0); Hemoglobin* 14.3 gm/dL (13.5-17.5); Immature Granulocytes Abs Auto 0.01 K/uL (0.00-0.30); Immature Granulocytes Pct Auto 0.2 %; Lymphocytes Percent Auto 44.8 % (20-44); Mean Corpuscular HGB Conc 34 gm/dL (32-36); Mean Corpuscular Hemoglobin 30 pg (26-34); Mean Corpuscular Volume 88 fL (80-100); Monocytes Percent Auto 12.6 % (0.0-11.0); Neutrophils Absolute Auto 1.97 K/uL (1.7-7.0); Platelet Count* 220 K/uL (140-440); Red Blood Count 4.76 m/uL (4.30-5.90); White Blood Count* 4.69 K/uL (4.50-11.00)
[2024-08-14 21:55] LABS: Slide Review Reflex No
--- OUTSIDE RECORDS SUMMARY | 2024-08-15 00:53 | XMS_ITS | Clinical Summary ---
Author Organization [employer] Address [address] [place] [address] Care Team Providers Care Vocational Training Instructor Name Role Phone Maco Rodriges MD Primary Care Provider [phone] Source Comments You are receiving this document as you are listed as the primary care provider,follow-up provider, or the patient has been referred to you for consultation.This is in compliance with the Medicare and[facility] EHR Incentive Program,which states Providers who transition their patient to another setting of careor provider of care or refers their patient to another provider of care shouldprovide summary care record for each transition of care or referral. [employer] Allergies Active Allergy Reactions Criticality Noted Date Comments Zinc Acetate Rash 10/02/2020 Zinc Oxide Medications divalproex (DEPAKOTE ER) 500 MG 24 hour release tablet Take 3 Tablets (1,500 mg) by mouth daily at bedtime. 1 Active cloZAPine (CLOZARIL) 100 MG tablet 1 Active insulin lispro (HUMALOG; ADMELOG) 100 UNIT/ML injection vialIndications:C ontrolled type 1 diabetes mellitus without complication (HRC) Inject 100 units daily via insulin pump 90 mL 3 5 Active levothyroxine (SYNTHROID) 75 MCG tablet Take 1 Tablet (75 mcg) by mouth daily. 90 Tablet 3 5 Active blood glucose (ACCU-CHEK GUIDE) test stripIndications: Controlled type 1 diabetes mellitus without complication (HRC) Use 4-6 Each to test daily. Use as directed. 600 Strip 3 5 Active lancets (ACCU-CHEK FASTCLIX)Indicati ons:Controlled type 1 diabetes mellitus without complication (HRC) Use 4-6 Each to test daily. 612 Each 3 Active Active Problems Problem Noted Date Diagnosed Date Uncontrolled type 1 diabetes mellitus with hyper glycemia 10/06/2021 Controlled type 1 diabetes mellitus without comp lication 12/30/2020 Bipolar depression 12/30/2020 Hypothyroidism due to Dl's thyroiditis Encounters Date Type Department Care Team Description 05/22/2024 Telephone [place] [address] [place] [address]. [place], [place] [id number] Day Odom, AVILA, RN DOCUMENT IMPROVEMENT Forms (Rx - [employer]) from Last 3 Months Social History Tobacco Use Types Packs/Day Years Used Date Smoking Tobacco: Never Smokeless Tobacco: Current Alcohol Use Standard Drinks/Week Comments Not Currently 0 (1 standard drink = 0.6 oz pur e alcohol) Sex and Gender Information Value Date Recorded Sex Assigned at Not on file Legal Sex Male 5:33 AM CDT Gender Identity Not on file Sexual Orientation Not on file Last Filed Vital Signs Vital Sign Reading Time Taken Comments Blood Pressure 139/88 04/03/2024 1:17 PM HEEL SEAT FILLER Pulse 114 04/03/2024 1:17 PM HEEL SEAT FILLER Temperature - - Respiratory Rate - - Oxygen Saturation - - Inhaled Oxygen Concentration - - Weight 87.5 kg (192 lb 14.4 oz) 04/03/2024 1:17 PM HEEL SEAT FILLER Height 175.3 cm (5' 9) 04/03/2024 1:17 PM HEEL SEAT FILLER Body Mass Index 28.49 04/03/2024 1:17 PM HEEL SEAT FILLER Plan of Treatment Upcoming Encounters Date Type Department Care Team (Late st Contact Info) Description 10/09/2024 1:15 PM CDT Appointment [facility] [address] [place] [address] Day Odom, BRIDGE ENGINEER, RN DOCUMENT IMPROVEMENT [address] [place], [place] [id number] Health Maintenance Due Date Last Done Comments Diabetes: Eye Exam 1996 Diabetes: Foot Exam 1996 Hep C Screening (Preventive Services) 1996 HIV Screening (Preventive Services) 2012 Adult Preventive Visit 2014 HepB Vaccine (1) 09/02/2015 Pneumococcal Vaccine (1 of 2 - PCV) 09/02/2015 HPV Vaccine (3 - Male 3-dose series) 12/28/2018 09/26/2018, 06/27/2018 COVID-19 Vaccine (3 - season) 2023 06/24/2020, 06/03/2020 Diabetes: HGBA1C 10/01/2024 04/03/2024, , 12/07/2022, Additional history exists Influenza Vaccine (Season Ended) 2024 12/26/2018, 12/07/2016, 12/01/2015, Additional history exists Diabetes: Creatinine 04/03/2025 04/03/2024, 04/12/2023, 06/08/2022, Additional history exists Diabetes: Urine Microalbumin 04/03/202512/2024, 04/12/2023, 06/08/2022, Additional history exists Diabetes: Lipid Panel 03/31/2026 03/31/2021 DTaP/Tdap/Td Vaccine (8 - Tdap) 05/03/2027 05/02/2017, 09/30/2009, 05/22/2002, Additional history exists Zoster/Shingles Vaccine (1 of 2) 2046 Hib Vaccine Completed 11/20/1997, 02/21, 01/11/1997, Additional history exists IPV (Polio) Vaccine Completed 10/06/2009, 05/23/2003, 05/22/2002, Additional history exists MCV4 Vaccine Aged Out 06/27/2018, 10/06/2009 No lo nger eligible based on patient's age to complete this topic HepA Vaccine Aged Out No longer eligi ble based on patient's age to complete this topic Meningococcal B Vaccine Aged Out No l onger eligible based on patient's age to complete this topic Procedures Procedure Name Priority Date/Time Associated Diagnosis Comments ALBUMIN/CREAT RATIO Routine 04/03/2024 2 :34 PM HEEL SEAT FILLER Controlled type 1 diabetes mellitus without complication (HRC) CREATININE / GFR Routine 04/03/2024 2:16 PM HEEL SEAT FILLER Controlled type 1 diabetes mellitus without complication (HRC) HGB A1C Routine 04/03/2024 2:16 PM HEEL SEAT FILLER Controlled type 1 diabetes mellitus without complication (HRC) LIPID PANEL & DIRECT LDL (IF NEEDED) Routine 03/31/2021 2:37 PM HEEL SEAT FILLER Controlled type 1 diabetes mellitus without complication (HRC) Bipolar depression (HRC) Hypothyroidism due to Dl's thyroiditis from Last 3 Months or Most Recently Relevant to Health Maintenance Results * Albumin/Creatinine Ratio,Random Urine (04/03/2024 2:34 PM HEEL SEAT FILLER) Albumin/Creati nine Ratio, Urine, Random 7 <30 mg/g 04/03/2024 8:39 PM HEEL SEAT FILLER [facility] Albumin, Urine, Random 4.2 mg/L 04/03/2024 8:39 PM HEEL SEAT FILLER [facility] Creatinine, Urine, Random 58 >20 mg/dL mg/dL 04/03/2024 8:39 PM HEEL SEAT FILLER [facility] Urine Non-blood Collection / Unknown 04/03/2024 2:34 PM HEEL SEAT FILLER 04/03/2024 2:34 PM HEEL SEAT FILLER us [facility] Final Res ult [facility] [address] [place] [address] * Creatinine / GFR (04/03/2024 2:16 PM HEEL SEAT FILLER) Creatinine 0.76 0.73 - 1.18 mg/dL 04/03/2024 9:02 PM HEEL SEAT FILLER [facility] GFR, Estimated >60 >60 mL/min/1.7 3m2 04/03/2024 9:02 PM HEEL SEAT FILLER [facility] Blood Venipuncture / Unknown 04/03/2024 2:16 PM HEEL SEAT FILLER 04/03/2024 2:23 PM HEEL SEAT FILLER Qi Jj Erinn [facility] Final Res ult Performing Organization Address [facility] Co de Phone Number [facility] [address] [place], [place] [address] * (ABNORMAL) Hgb A1C (04/03/2024 2:16 PM HEEL SEAT FILLER) Hemoglobin A1C (Rapid) 6.9(H) <=5.6 % 04/03/2024 4:00 PM ED [facility] Estimated Average Glucose (Calc) 151 < 117 mg/dL 04/03/2024 4:00 PM ED [facility] Comment:Estimated average gl ucose (eAG) converts A1c into glucose units (mg/dL) and estimates average glucose over the past approximately 3 months. The eAG reference interval (<117 mg/dL) corresponds to an A1c of <5.7%. Blood Venipuncture / Unknown 04/03/2024 2:16 PM HEEL SEAT FILLER 04/03/2024 2:23 PM HEEL SEAT FILLER Narrative [facility] - 04/03/2024 4:00 PM HEEL SEAT FILLER For patients not previously diagnosed with diabetes: 5.7-6.4%: Increased risk for diabetes 6.5% and greater: Diagnostic for diabetes For patients diagnosed with diabetes: <8.0%: Goal of therapy for ages 18-75 Clinicians may recommend a higher or lower goal for specific individuals. The test method used for this Hemoglobin A1c result can experience interference from elevated hemoglobin and other hemoglobin variants. In patients with results that do not correlate clinically, contact the lab for further direction. Qi Jj Erinn [facility] Final Res ult Performing Organization Address City/[facility]/ZIP Co de Phone Number [facility] [address] [place] [address], [facility] * Lipid Panel - LDLD If Trig High (03/31/2021 2:37 PM HEEL SEAT FILLER) Cholesterol 172 0 - 199 mg/dL 03/31/2021 4:24 PM ED [facility] Triglyceride 84 <=149 mg/dL 03/31/2021 4:24 PM ED [facility] HDL Cholesterol 47 >=40 mg/dL 02/08/202 2 4:24 PM ED [facility] LDL, Calculated 108 <130 mg/dL 2 4:24 PM ED [facility] Non HDL Chol, Calculated 125 <=159 mg/dL 03/31/2021 4:24 PM ED [facility] Cholesterol/HDL Ratio 3.7 03/31/2021 4:24 PM ED [facility] Hours Fasting 0 03/31/2021 4:24 PM ED [facility] Blood Venipuncture / Unknown 03/31/2021 2:37 PM HEEL SEAT FILLER 03/31/2021 2:37 PM HEEL SEAT FILLER us Qi [facility] Final Res ult [facility] [address] [place] [address], [facility] [phone] from Last 3 Months or Most Recently Relevant to Health Maintenance Insurance MEDICA ACCESSABILITY Care Teams Vocational Training Instructor Relationship Specialty Start Date End Date Maco Rodriges MD [address] [place] [address] PCP - General Family Practice 04/12/23
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
--- OUTSIDE RECORDS SUMMARY | 2024-08-15 00:53 | XMS_ITS | Clinical Summary ---
Author Organization [employer] [facility] [employer] Address [address] [place] [address] Care Team Providers Care Track Rider Name Role Phone Tamara Aparicio MD Unavailable [phone] Team, [facility] Diabetic Unavailable Unavailable Pcp, No Primary Care Provider Unavailabl e Allergies Active Allergy Reactions Criticality Noted Date Comments Zinc Oxide Rash Low 09/30/2009 Medications Insulin Pump Cartridge crtg Novolog Insulin Basal rate: 1.3 units/hr (continuous) Bolus ratio (grams of carbohydrate eaten per 1 unit of insulin): 12am-7am...9 g/unit 7am-12pm... 11 g/unit 12pm-5pm...10 g/unit 5pm-12am... 9 g/unit Insulin sensitivity factor: 1:50 Active levothyroxine (SYNTHROID) 75 mcg tabletIndicatio ns:Hypothyroidi sm due to acquired atrophy of thyroid Take 1 tablet by mouth once daily. 30 tablet 11/24/2017 5:16 PM CDT 8 Active divalproex (DEPAKOTE ER) 500 mg Extended-Releas e tabletIndicatio ns:Schizophreni a, schizo-affectiv e type (HC) Take 3 tablets by mouth once daily. 1 tablet 9 Active Additional Information Patient taking differently:1,500 mg OralBEDTIME, Reported on 09/25/2022 cloZAPine (CLOZARIL) 100 mg tablet Take 400 mg by mouth at bedtime. Active Active Problems Problem Noted Date Diagnosed Date Tachycardia 09/29/2022 Intentional overdose 09/25/2022 ACP (advance care planning) 10/15/2018 S/P laparoscopic appendectomy 12/06/2017 Schizophrenia, schizo-affective type 12/06/2017 OCD (obsessive compulsive disorder) 12/02/2017 Suicide attempt 11/17/2017 MRSA (methicillin resistant Staphylococcus aureu s) 05/02/2017 Overview (11/16/2017): neck abscess, 11/17/15 Nares; 04/30/15 R chin area; 04/09/2015 Nares; 02/18/2015 Blood Culture at [facility] MRSA (methicillin resistant Staphylococcus aureu s) 05/02/2017 Overview (11/16/2017): neck abscess, 11/17/15 Nares; 04/30/15 R chin area; 04/09/2015 Nares; 02/18/2015 Blood Culture at [facility] MRSA (methicillin resistant Staphylococcus aureu s) 05/02/2017 Overview (11/16/2017): neck abscess, 11/17/15 Nares; 04/30/15 R chin area; 04/09/2015 Nares; 02/18/2015 Blood Culture at [facility] Hypothyroidism 04/09/2015 Nausea and vomiting 01/31/2014 Schizo-affective type schizo phrenia, subchronic state with acute exacerbation 01/04/2014 Conduct disorder 10/09/2013 Homicidal ideation 05/03/2013 Type 1 diabetes mellitus without complication Overview (10/23/2015): seeing Dr. Aparicio; blood sugars 230 average in 04/04, hgbA1C Was 9.5--improved from last year (10.8)---needing more frequent blood checks and continues on novolog insulin. 05/02 and 10/03 had normal retinal exam Goal is hgba1c of 7 with no lows Insulin pump Resolved Problems Problem Noted Date Diagnosed Date Resolved Date Abdominal pain 12/06/2017 09/25/2022 Levothyroxine sodium overdose 11/13/2017 09/25/2022 Overdose of antipsychotic 11/13/2017 Intentional drug overdose 10/23/2015 Overview (10/23/2015): Clozaril, depakote, trazedone, duloxitine, synthroid 10/23/2015 Elbow pain, right 02/05/2014 09/25/2022 Anemia 02/01/2014 09/25/2022 Chest pain 02/01/2014 09/25/2022 DKA, type 1 01/31/2014 09/25/2022 Left hand pain and swelling 05/04/2013 12/21/2013 Suicidal ideation 05/03/2013 10/09/2013 Obsessive-compulsive disorder 04/03/2013 10/08/2013 Impulse control disease 04/03/201309/21 Abrasion, hand 03/19/2013 12/21/2013 Suicidal thoughts 03/14/2013 10/08/2013 Acute appendicitis with localized peritonitis 09/25/2022 Immunizations Immunization Administration Dates Next Due DTaP 05/23/2003, 8,03/08/1997,01/11,1996 HIB PRP-T (ActHIB,Hiberix) 11/20/1997,,01/11/1997,11/14 Hepatitis B (Peds) 09/30/2009,03/08/1997, 997 Influenza A (H1N1), Inactiva beata (Age >=3 Years) 01/09/2009 Influenza, IIV3 (Age >=3 years) 01/25/2006 MENINGOCOCCAL VACCINE 2 VIAL 2MO-55YO (MENVEO) 10/06/2009 MMR 05/22/2002,08/28/1997 Oral Polio Vaccine 05/23/2003, 8,01/11/1997,11/14 Tdap 05/02/2017,09/30/2009 Tuberculin (PPD) 01/09/2009 Varicella Vaccine 09/30/2009,11/20/1997 Family History Medical History Relation Name Comments Heart Disease Maternal Grandfather Stroke Maternal Grandfather Cancer-breast Maternal Grandmother Alcoholism Paternal Grandfather Psychiatric illness Paternal Grandfather depression Relation Name Status Comments Father Alive Maternal Grandfather Maternal Grandmother Mother Alive Paternal Grandfather Alive Paternal Grandmother Alive Sister Alive x1 Social History Tobacco Use Types Packs/Day Years Used Date Smoking Tobacco: Former Cigarettes 0.3 2 0 11/19/2015 - 11/18/2017 Smokeless Tobacco: Never Tobacco Cessation:Counseling Given: Not Answered Comments:states would love to requesting nicorette gum Alcohol Use Standard Drinks/Week Comments No 0 (1 standard drink = 0.6 oz pure alcohol) Patient reports last drink two years ago. PHQ-2 Answer Date Recorded PHQ-2 Score 2 04/22/2018 Social Connections Answer Date Recorded Frequency of Communication with Friends and Fami ly Not on file 09/25/2022 Sex and Gender Information Value Date Recorded Sex Assigned at Not on file Legal Sex Male 5:31 AM COMMERCIAL PARTS PROFESSIONAL Gender Identity Not on file Sexual Orientation Not on file Occupation Industry Job Start Date Job End Date student Not on file Not on file Not on file [employer] Not on file Not on file Not on file Obstetrics History Last Filed Vital Signs Vital Sign Reading Time Taken Comments Blood Pressure 121/78 09/29/2022 4:00 PM CDT Pulse 96 09/29/2022 4:00 PM CDT Temperature 36.8 C (98.3 F) 09/29/2022 4:00 PM CDT Respiratory Rate 16 09/29/2022 4:00 PM CDT Oxygen Saturation 96% 09/29/2022 4:00 PM CDT Inhaled Oxygen Concentration - - Weight 67.4 kg (148 lb 11.2 oz) 09/27/2022 2:09 PM CDT Height 175.3 cm (5' 9) 09/27/2022 2:09 PM CDT Body Mass Index 21.96 09/27/2022 2:09 PM CDT Plan of Treatment Health Maintenance Due Date Last Done Comments Hepatitis C screening for ag e 18-79 2014 Pneumococcal series for age 6-49 (1 of 2 - PCV) 09/02/2015 BMI (ht and wt on same day) for age 18+ 05/04/2018 05/04/2017, 12/14/2016, 10/23/2015, Additional history exists Depression screening for age 12+ 11/16/2018 11/17/19 18 COVID-19 vaccine series ( season) 2023 06/24/2020, 06/03/2020 Influenza Vaccine (Season Ended) 2024 01/26/20 06 Tetanus booster 05/03/2027 05/02/2017, 09/30/2009 Hepatitis B series for 19+ Completed 09/30, 03/08/1997, 1996 HIV for age 15-65 Completed 04/10/2015 Tdap Completed 05/02/2017, 09/30/2009 Procedures Procedure Name Priority Date/Time Associated Diagnosis Comments ANTI HIV 1/2 Early AM 04/10/2015 8:08 AM COMMERCIAL PARTS PROFESSIONAL from Last 3 Months or Most Recently Relevant to Health Maintenance Results * ANTI HIV 1/2 (04/10/2015 8:08 AM COMMERCIAL PARTS PROFESSIONAL) HIV-1/HIV-2 ANTIBODY Non-Reacti ve Non-Reacti ve 04/10/2015 10:42 AM COMMERCIAL PARTS PROFESSIONAL [facility] Blood specimen (specimen) BLOOD SPECIMEN / Unknown Non-Lab Venipuncture / Unknown 04/10/2015 8:08 AM COMMERCIAL PARTS PROFESSIONAL 04/10/2015 8:31 AM COMMERCIAL PARTS PROFESSIONAL Narrative [facility] - 04/10/2015 10:42 AM COMMERCIAL PARTS PROFESSIONAL HIV-1 p24 and HIV-1/HIV-2 Ab not detected us Jaiden Jain MD SEND OUTS Juli barrios Result [facility] [address] [place] [address], [place] from Last 3 Months or Most Recently Relevant to Health Maintenance Additional Health Concerns Infection Onset Date Last Indicated MRSA Clearance Comment:Infection Control Note: Hx of MRSA, surveillance criteria met, no need for further testing or isolation precautions. Do not delete or deactivate the FYI. MRSA > 1year, no current risk factors 11/17/2017 11/17/2017 Insurance MEDICA ACCESSABILITY SOLUTION Member Subscriber Plan / Payer (Ef fective 2022-Present) Name:Jerry Joiner Relation to Subscriber:Self Name:Jerry Joiner Payer ID:Not on file Type:Not on file Address: [address] FAMILY on file Advance Directives * Full Code (Latest Code Status on File) Date Activated Date Inactivated Comments 09/27/2022 2:46 PM 09/30/2022 12:06 PM Question Answer Comments Code Status Discussion: Reviewed Preferences * Full Code Date Activated Date Inactivated Comments 09/25/2022 1:49 PM 09/27/2022 2:06 PM Question Answer Comments Code Status Discussion: Reviewed Preferences * Full Code Date Activated Date Inactivated Comments 10/17/2018 3:46 PM 10/20/2018 8:02 PM * Full Code Date Activated Date Inactivated Comments 10/14/2018 11:27 PM 10/17/2018 3:41 PM * Full Code Date Activated Date Inactivated Comments 12/06/2017 3:59 AM 12/07/2017 3:52 PM Care Teams Track Rider Relationship Specialty Start Date End Date Pcp, No . PCP - General 03/01/24 Tamara Aparicio MD [address] [place] [address] Endocrinology 12/04/12 Team, [facility] Diabetic 03/19/13
== END 2024-08-14 14:55 | disposition home or self-care (01) ==
LOC: NPINS 14:55
PROVIDERS: Visit Provider Psychiatry & Neurology Psychiatry
DX: Z51.81 Encounter for therapeutic drug level monitoring (principal)
CPT/HCPCS: 85025

== ENCOUNTER 2024-09-14 09:22 | Outpatient (CLI) | payer OTHER, SELFPAY ==
[2024-09-11 21:52] LABS: Hematocrit 41.7 % (37.0-53.0); Hemoglobin* 14.4 gm/dL (13.5-17.5); Immature Granulocytes Abs Auto 0.01 K/uL (0.00-0.30); Immature Granulocytes Pct Auto 0.1 %; Lymphocytes Absolute Auto 2.02 K/uL (0.90-2.90); Mean Corpuscular HGB Conc 35 gm/dL (32-36); Mean Corpuscular Hemoglobin 30 pg (26-34); Mean Corpuscular Volume 87 fL (80-100); RDW Coefficient of Variation % 12.0 % (11.5-15.5); Red Blood Count 4.80 m/uL (4.30-5.90); White Blood Count* 7.93 K/uL (4.50-11.00)
[2024-09-11 22:02] LABS: Slide Review Reflex No
== END 2024-09-14 09:23 | disposition home or self-care (01) ==
LOC: NPINS 09:22
PROVIDERS: Visit Provider Psychiatry & Neurology Psychiatry
DX: Z51.81 Encounter for therapeutic drug level monitoring (principal)
CPT/HCPCS: 85025

== ENCOUNTER 2024-10-09 11:44 | Outpatient (CLI) | payer OTHER, SELFPAY ==
[2024-10-09 22:11] LABS: Hematocrit* 40.4 % (37.0-53.0); Hemoglobin* 13.9 gm/dL (13.5-17.5); Immature Granulocytes Abs Auto 0.03 K/uL (0.00-0.30); Immature Granulocytes Pct Auto 0.6 %; Lymphocytes Absolute Auto 1.62 K/uL (0.90-2.90); Mean Corpuscular HGB Conc 34 gm/dL (32-36); Mean Corpuscular Hemoglobin 30 pg (26-34); Mean Corpuscular Volume 86 fL (80-100); RDW Coefficient of Variation % 12.1 % (11.5-15.5); Red Blood Count* 4.68 m/uL (4.30-5.90); White Blood Count* 4.65 K/uL (4.50-11.00)
[2024-10-09 22:16] LABS: Slide Review Reflex No
== END 2024-10-09 11:45 | disposition home or self-care (01) ==
LOC: NPINS 11:45
PROVIDERS: Visit Provider Psychiatry & Neurology Psychiatry
DX: Z51.81 Encounter for therapeutic drug level monitoring (principal)
CPT/HCPCS: 85025

== ENCOUNTER 2024-11-07 10:41 | Outpatient (CLI) | payer OTHER, SELFPAY ==
[2024-11-07 13:07] LABS: Hematocrit* 39.0 % (37.0-53.0); Hemoglobin* 13.5 gm/dL (13.5-17.5); Immature Granulocytes Abs Auto 0.01 K/uL (0.00-0.30); Immature Granulocytes Pct Auto 0.2 %; Lymphocytes Absolute Auto 2.07 K/uL (0.90-2.90); Mean Corpuscular HGB Conc 35 gm/dL (32-36); Mean Corpuscular Hemoglobin 30 pg (26-34); Mean Corpuscular Volume 87 fL (80-100); RDW Coefficient of Variation % 12.4 % (11.5-15.5); Red Blood Count* 4.48 m/uL (4.30-5.90); White Blood Count* 5.00 K/uL (4.50-11.00)
[2024-11-07 13:09] LABS: Slide Review Reflex No
== END 2024-11-07 10:42 | disposition home or self-care (01) ==
LOC: NPINS 10:42
PROVIDERS: Visit Provider Psychiatry & Neurology Psychiatry
DX: Z51.81 Encounter for therapeutic drug level monitoring (principal)
CPT/HCPCS: 85025

== ENCOUNTER 2024-12-06 13:05 | Outpatient (CLI) | payer OTHER, SELFPAY ==
[2024-12-06 21:39] LABS: Hematocrit* 40.1 % (37.0-53.0); Hemoglobin* 13.7 gm/dL (13.5-17.5); Immature Granulocytes Abs Auto 0.01 K/uL (0.00-0.30); Immature Granulocytes Pct Auto 0.2 %; Lymphocytes Absolute Auto 1.41 K/uL (0.90-2.90); Mean Corpuscular HGB Conc 34 gm/dL (32-36); Mean Corpuscular Hemoglobin 30 pg (26-34); Mean Corpuscular Volume 88 fL (80-100); RDW Coefficient of Variation % 12.4 % (11.5-15.5); Red Blood Count* 4.57 m/uL (4.30-5.90); White Blood Count* 5.58 K/uL (4.50-11.00)
[2024-12-06 21:44] LABS: Slide Review Reflex No
== END 2024-12-06 13:06 | disposition home or self-care (01) ==
LOC: NPINS 13:05
PROVIDERS: Visit Provider Psychiatry & Neurology Psychiatry
DX: Z51.81 Encounter for therapeutic drug level monitoring (principal)
CPT/HCPCS: 85025

== ENCOUNTER 2025-01-01 14:29 | Outpatient (CLI) | payer OTHER, SELFPAY ==
[2025-01-01 21:51] LABS: Hematocrit* 42.6 % (37.0-53.0); Hemoglobin* 14.5 gm/dL (13.5-17.5); Immature Granulocytes Pct Auto 0.5 %; Mean Corpuscular HGB Conc 34 gm/dL (32-36); Mean Corpuscular Hemoglobin 30 pg (26-34); Mean Corpuscular Volume 88 fL (80-100); RDW Coefficient of Variation % 12.2 % (11.5-15.5); Red Blood Count* 4.87 m/uL (4.30-5.90); White Blood Count* 3.87 K/uL (4.50-11.00)
[2025-01-01 22:00] LABS: Immature Granulocytes Abs Auto 0.00 K/uL (0.00-0.30); Lymphocytes Absolute Auto 1.50 K/uL (0.90-2.90); Slide Review Reflex No
== END 2025-01-01 14:30 | disposition home or self-care (01) ==
LOC: NPINS 14:30
PROVIDERS: Visit Provider Psychiatry & Neurology Psychiatry
DX: Z51.81 Encounter for therapeutic drug level monitoring (principal)
CPT/HCPCS: 85025

== ENCOUNTER 2025-01-29 13:41 | Outpatient (CLI) | payer OTHER, SELFPAY ==
[2025-01-29 23:04] LABS: Hematocrit* 42.5 % (37.0-53.0); Hemoglobin* 14.5 gm/dL (13.5-17.5); Immature Granulocytes Abs Auto 0.01 K/uL (0.00-0.30); Immature Granulocytes Pct Auto 0.2 %; Lymphocytes Absolute Auto 2.34 K/uL (0.90-2.90); Mean Corpuscular HGB Conc 34 gm/dL (32-36); Mean Corpuscular Hemoglobin 30 pg (26-34); Mean Corpuscular Volume 89 fL (80-100); RDW Coefficient of Variation % 12.6 % (11.5-15.5); Red Blood Count* 4.80 m/uL (4.30-5.90); White Blood Count* 6.54 K/uL (4.50-11.00)
[2025-01-29 23:08] LABS: Slide Review Reflex No
== END 2025-01-29 13:42 | disposition home or self-care (01) ==
LOC: NPINS 13:42
PROVIDERS: Visit Provider Psychiatry & Neurology Psychiatry
DX: Z51.81 Encounter for therapeutic drug level monitoring (principal)
CPT/HCPCS: 85025